=== PATIENT | female | born 1975 | race Caucasian/White ===

== ENCOUNTER 2017-06-28 06:01 | Day surgery (SDC) | payer BC ==
[2017-06-23 10:05] VITALS: BMI 59.7
[2017-06-28] MEDS ORDERED: LACTATED RINGERS 1,000 ML IV SCH (06:02)
[2017-06-28] MEDS ORDERED: SODIUM CHLORIDE 0.9% 1,000 ML IV SCH (06:02)
[2017-06-28] MEDS ORDERED: PROPOFOL 10 MG/ML 20 ML VIAL IV ONE (07:29)
[2017-06-28] MEDS ORDERED: ISOPROTERENOL 250 MCG/1.25 ML SYR IV ONE (07:29)
[2017-06-28] MEDS ORDERED: fentaNYL (PF) 50 MCG/ML 2 ML AMP ONE (07:29)
[2017-06-28] MEDS ORDERED: PHENYLEPHRINE-0.9% NACL SYG 1 MG/10 ML SYRINGE ONE (07:29)
[2017-06-28] MEDS ORDERED: SUCCINYLCHOLINE CHLORIDE VIAL 200 MG/10 ML VIAL IV ONE (07:29)
[2017-06-28] MEDS ORDERED: MIDAZOLAM 2 MG/2 ML VIAL ONE (07:29)
[2017-06-28] MEDS ORDERED: IV FLUID CONTINUATION 600 ML IV ONE ×2 (07:48)
[2017-06-28] MEDS ORDERED: LIDOCAINE 2% INJ 20 MG/ML SQ ONE (08:31)
[2017-06-28] MEDS ORDERED: HEPARIN SODIUM (1,000 UNIT/ML) 1,000 UNIT in SODIUM CHLORIDE 0.9% 1,000 ML IRRIGATION ONE (09:16)
[2017-06-28] MEDS ORDERED: ACETAMINOPHEN TAB 325 MG TAB PO PRN (10:21)
[2017-06-28] MEDS ORDERED: ACETAMINOPHEN IV (For NPO) 1,000 MG in EMPTY BAG 1 BAG IVPB ONE (10:21)
[2017-06-28] MEDS ORDERED: HYDROcodone/APAP 5-325MG 1 EACH TAB PO PRN (10:21)
[2017-06-28] MEDS ORDERED: ACETAMINOPHEN IV (For NPO) 1,000 MG/100 ML VIAL IVPB ONE (11:30)
[2017-06-28] MEDS ORDERED: LACTATED RINGERS 1,000 ML IV ONE (11:55)
--- NOTE | 2017-06-28 12:01 | CE ---
CARDIAC ELECTROPHYSIOLOGY REPORT Naomie Cabrales is a 42-year-old female patient of Dr. Huang and Dr. Helen Gomez who now follows with me. She has a history of paroxysmal atrial fibrillation with RVR. She has also had a history of atrial flutter. These episodes have been quite long and symptomatic and she was brought in for an EP study and radiofrequency ablation for atrial flutter. Sotalol was stopped several days prior to the procedure. Procedure was performed under general anesthesia. The right and left groin were prepped and draped as per protocol. sheaths were placed in the right and left femoral veins. Via these diagnostic catheters were placed in the heart (high right atrial catheter, His bundle catheter, RV catheter and coronary sinus catheter). Sinus cycle length was 818 milliseconds, NH interval 176 milliseconds, QRS 86 milliseconds, QT 388 milliseconds. AH interval was 69 milliseconds. HV interval 48 milliseconds. Sinus node recovery times at 600, 500 and 400 milliseconds at 1231, 1263 and 1233 milliseconds respectively. Corresponding corrected sinus node recovery times within normal limits. AV node Wenckebach block 320 milliseconds from the coronary sinus. VA Wenckebach block 300 milliseconds. Atrial extra stimulation was performed. Atrial ERP 600/220 milliseconds. Wide open Isuprel, AV node Wenckebach block improved to 220 milliseconds. Right bundle branch block aberrancy was noted. Slow pathway was noted at a pacing cycle length of 310 milliseconds. No AV carolina re-entry was induced. Atrial ERP 500/10 milliseconds. There was a drop in blood pressure with Isuprel and with rapid atrial pacing. Intracardiac echocardiography was performed. A 3D mapping of the right atrial isthmus was performed. This was a short thick isthmus with mid isthmus pouch. Branch of the coronary artery was beneath the atrial tissue close to the tricuspid annulus and this area was avoided. RF ablation was performed for the tricuspid annulus to the eustachian ridge. A complete anatomic line of block was made avoiding the area of the coronary artery. A complete anatomic line was made. The pouch was ablated carefully. Eustachian ridge was ablated with reversed loop technique. No anatomic gaps were left. Isthmus conduction time was greater than 174 milliseconds in either direction. The differential pacing bidirectional block was confirmed. The line was mapped postablation and split potentials were noted with spit of about 120 milliseconds across the line. Then on Isuprel rapid burst stimulation was performed. No atrial fibrillation was induced. No SVT was induced. The patient was then extubated at the end of the procedure. All catheters removed. FemoStop was used. RESULT: Diagnostic EP study revealing 1. Normal sinus node function, normal AV node function. 2. Evidence of dual AV carolina physiology. 3. Normal baseline measurements. 4. Successful mapping and ablation for atrial flutter. This was a short thick isthmus pouch bidirectional block obtained with differential pacing. 5. Intracardiac echocardiography did not reveal any pericardial effusion. It did not reveal any wall motion abnormality. Left ventricular ejection fraction about 50% low limits of normal. PLAN: Stop sotalol, start metoprolol succinate 50 mg p.o. daily. Continue spironolactone and losartan and anticoagulation. MMODL / IJN: [id number] /
--- NOTE | 2017-06-28 12:07 | LTR ---
June 28, 2017 Re: Naomie Keron Dear Dr. Huang: I had the pleasure of seeing Naomie Cabrales in electrophysiology followup. Naomie underwent diagnostic EP study and successful ablation for atrial flutter. Left ventricular ejection fraction is at the lower limits of normal about 505. I had stopped sotalol and started her on Toprol-XL 50 mg p.o. daily. She will continue apixaban for now and will also continue losartan and spironolactone. In the future, she has episodes of atrial fibrillation then I would proceed with an atrial fibrillation ablation. On Isuprel during tachycardia, her blood pressure dropped to 80 mmHg, which explains why her episodes of atrial fibrillation with RVR and atrial flutter with RVR are so symptomatic. Thank you for entrusting me in the care of patient. Warm regards. Sincerely, MD CANDELARIA Marie / BASIL: [id number] /
[2017-06-28] MEDS: METOPROLOL SUCCINATE (ER) 50 MG TAB.ER.24H PO SCH (16:23)
[2017-06-28] MEDS: APIXABAN 5 MG TAB PO SCH (20:18)
[2017-06-29 07:47] VITALS: BP 140/76; PULSE 80; RESP 18; TEMP 98
--- NOTE | 2017-06-29 08:11 | P.DS ---
Providers Attending physician: Jose David Godoy Primary care physician: Stated None Hospital Course: Patient underwent a diagnostic EP study and successful ablation for atrial flutter with confirmed bidirectional block with differential pacing. Sotalol was discontinued. Metoprolol succinate was begun 50 mrem. Once daily. ELIQUIS , spironolactone and losartan were continued. Intracardiac echocardiography revealed the left ventricular ejection fraction of about 50% , no pericardial effusion no wall motion abnormalities. No intracardiac mass or thrombus Patient is doing well. She has been ambulating up in the hallways. No chest discomfort no dizziness lightheadedness. Groins are sore but there is no hematoma. On examination she is afebrile 98F blood pressure 140/76 mmHg pulse rate in the 80s pulse ox 96%. Heart sounds S1 and S2 are normal no murmurs or gallop sounds are clear no rhonchi no crackles extremities warm no edema Impression History of dilated cardio myopathy Hypertension Paroxysmal atrial fibrillation with RVR Paroxysmal atrial flutter, symptomatic Morbid obesity Past history of smoking Plan Stop sotalol completely and start metoprolol succinate watch for episodes of atrial fibrillation, weight loss him a low, heart rate tired, sleep apnea assessment Continue anticoagulation Follow-up with Dr. Storey in about 2 weeks Patient Condition at Discharge: Stable Plan - Discharge Summary New Discharge Prescriptions: New RX: Metoprolol Succinate [Toprol XL] 50 mg PO DAILY #90 tab.er.24h Discontinued Sotalol [Betapace] 80 mg PO BID No Action Spironolactone [Aldactone] 25 mg PO DAILY Losartan Potassium [Cozaar] 25 mg PO DAILY Multivitamins, Thera [Multivitamin (formulary)] 1 tab PO DAILY Magnesium Gluconate [Magonate] 500 mg PO DAILY RX: Garlic 1 each PO DAILY Apixaban [Eliquis] 5 mg PO BID Discharge Medication List Losartan Potassium [Cozaar] 25 mg PO DAILY 06/23/17 [History] Magnesium Gluconate [Magonate] 500 mg PO DAILY 06/23/17 [History] Multivitamins, Thera [Multivitamin (formulary)] 1 tab PO DAILY 06/23/17 [History ] RX: Garlic 1 each PO DAILY 06/23/17 [History] Spironolactone [Aldactone] 25 mg PO DAILY 06/23/17 [History] Apixaban [Eliquis] 5 mg PO BID 06/28/17 [History] RX: Metoprolol Succinate [Toprol XL] 50 mg PO DAILY #90 tab.er.24h 06/28/17 [Rx] Activity/Diet/Wound Care/Special Instructions: Post EP study - Ablation instructions 1. Keep access sites dry for 2 days. 2. No heavy lifting or straining for 2 days. 3. Avoid bending the hips repeatedly for 2 days. 4. You may go up and down stairs slowly Call if the following is noted 1. Bleeding, increasing swelling or pain at the access sites. 2. Increasing chest discomfort, especially upon taking a deep breath. 3. Increasing shortness of breath, at rest or with exertion. 4. Undue cough / phlegm 5. Difficulty or pain while swallowing. 6. Pain or change in color in the extremities. 7. Fever, chills, rigors. 8. Increasing headache or neurologic symptoms. 9. Dizziness, fainting, palpitations Discontinued medication Sotalol New medication Metoprolol succinate 50 mg by mouth daily Continue anticoagulation, continue spironolactone and losartan
[2017-06-29] MEDS: METOPROLOL SUCCINATE (ER) 50 MG TAB.ER.24H PO SCH (08:27)
[2017-06-29] MEDS: APIXABAN 5 MG TAB PO SCH (08:28)
[2017-06-29] MEDS ORDERED: SPIRONOLACTONE 25 MG TAB PO SCH (09:00)
[2017-06-29] MEDS ORDERED: MAGNESIUM OXIDE 400 MG TAB PO SCH (09:00)
[2017-06-29] MEDS ORDERED: LOSARTAN 25 MG TAB PO SCH (09:00)
== END 2017-06-29 11:13 | disposition home or self-care (01) ==
LOC: CATHEP 06:01 → 3OBS 10:06 → CATHEP 06-29 11:13
PROVIDERS: ATTEND Internal Medicine Clinical Cardiac Electrophysiology
DX: I48.0 Paroxysmal atrial fibrillation (principal); I48.92 Unspecified atrial flutter; I45.10 Unspecified right bundle-branch block; I44.1 Atrioventricular block, second degree; I42.8 Other cardiomyopathies; I10 Essential (primary) hypertension; Z87.891 Personal history of nicotine dependence; E66.01 Morbid (severe) obesity due to excess calories; Z68.43 Body mass index [BMI] 50.0-59.9, adult; Z82.49 Family history of ischemic heart disease and other diseases of the circulatory system; Z79.82 Long term (current) use of aspirin; Z79.899 Other long term (current) drug therapy; Z79.02 Long term (current) use of antithrombotics/antiplatelets
CPT/HCPCS: 93623; 93662; 93613; 93653; 81025; C1894; C1769 ×2; C1893; C1730 ×3; C1759; C1732; J2001; J2250; J0330; J3010; J1644; J0131; J2370; J2704

== ENCOUNTER → 2017-10-20 | Outpatient (CLI) | payer BC ==
--- NOTE | 2017-10-20 17:38 | PN ---
PROGRESS NOTE DATE OF SERVICE: 10/20/2017 42-year-old lady has been followed in Sleep Center for treatment of severe obstructive sleep apnea-hypopnea syndrome. Recently patient had polysomnogram and CPAP titration and I discussed results of sleep studies with her in details. Severe sleep apnea was corrected during titration. Subsequently she received her CPAP equipment, started to use it and today she came for followup visit with her equipment. The patient was able to use her equipment without significant problems related to mask fitting, pressure, or humidification. She feels better during the day, not so sleepy as before. [place] Sleepiness Scale today is 5. I checked her CPAP unit. Usage is 100% of the time with the average usage 7.7 hours. Leak is 2 L/minute only, which is absolutely perfect. Apnea-hypopnea index for the last month 3.34. The last night only 0.9. MEDICATIONS: Metoprolol, losartan, spironolactone, Eliquis. PHYSICAL EXAM: GENERAL Patient in no distress. VITAL SIGNS BP 129/67, HR 76, RR 16, weight 317.6, temperature 98.2, O2 saturation room air 98%. HEENT PERRLA, EOMI, evaluation of oropharynx showed low position of soft palate. NECK Supple, no JVD. Thyroid is not palpable. LUNGS Clear to percussion and to auscultation. Good air exchange. No wheezing or rhonchi. HEART S1, S2 regular. No murmurs, gallops, or rubs. ABDOMEN Obese. Soft and nontender. Bowel sounds are present. No organomegaly appreciated. EXTREMITIES 1+ ankle edema. PILLOWCASE MAKER Awake, alert, and oriented X3. Cranial nerves 2 to 7 intact. There is no fasciculation or atrophy. noted. No focal deficits observed. IMPRESSION: 1. Extremely severe obstructive sleep apnea-hypopnea syndrome apnea-hypopnea index 97.9 with oxygen desaturation to 74% on control with CPAP at 10 cm of water. Patient demonstrated 100% compliance with treatment benefitting from treatment. 2. Obesity. 3. Diabetes mellitus. 4. History of atrial fibrillation, status post cardiac ablation procedure. At the present time it seems that she is in sinus rhythm. 5. Hypertension. 6. Status post tubal ligation. PLAN: 1. Continue treatment with CPAP every night. 2. Losing weight. 3. Sleep hygiene with regular time in bed for at least 8 hours. 4. No driving if feeling sleepiness. Thank you very much for allowing me to participate in management of your patient. Sincerely, Anton Meade MD, PhD, FAASM Diplomat of [employer] Rn Or Lpn of [facility] [place] MMODL / NASIMAN: [id number] /
== END | disposition home or self-care (01) ==
LOC: SLEEP 16:08
PROVIDERS: ATTEND Internal Medicine
DX: G47.33 Obstructive sleep apnea (adult) (pediatric) (principal); E66.9 Obesity, unspecified; I48.91 Unspecified atrial fibrillation; E11.9 Type 2 diabetes mellitus without complications; I10 Essential (primary) hypertension; Z79.01 Long term (current) use of anticoagulants; Z79.899 Other long term (current) drug therapy; Z99.89 Dependence on other enabling machines and devices; Z98.51 Tubal ligation status; Z98.890 Other specified postprocedural states

== ENCOUNTER → 2018-10-19 | Outpatient (CLI) | payer BC ==
--- NOTE | 2018-10-19 16:08 | PN ---
PROGRESS NOTE DATE OF SERVICE: 10/19/2018 This patient is a 43-year-old lady who has been followed in Sleep Center for treatment of obstructive sleep apnea-hypopnea syndrome. The patient continues to use her equipment every night for the whole night. Recently she again developed snoring and started to feel a little bit more tired during the day. [place] Sleepiness Scale is 5. I checked the patient's CPAP unit. Usage is 100% of nights for more than 4 hours. Average usage is 6.5 hours per night. Leak is only 2 L/minute. Apnea-hypopnea index is 3.6, which is acceptable. For the last night, apnea-hypopnea index was 2.2. CPAP pressure is 10 cm of water. MEDICATIONS: 1. Citalopram. 2. Metoprolol. 3. Spironolactone. 4. Flecainide. PHYSICAL EXAMINATION: GENERAL: A pleasant patient in no distress. VITAL SIGNS: BP 140/56, HR 76, RR 16, height 5 feet 6 inches, weight 399 pounds. Patient's weight increased significantly since her previous visit, when her weight was 317 pounds; this is around 82 pounds more. Body mass index 64. Temperature 98.0. Saturation at room air 98%. HEENT: PERRLA, EOMI. Evaluation of oropharynx showed tongue protrudes midline. Extremely low position of soft palate. NECK: Supple. No JVD. Thyroid is not palpable. LUNGS: Clear to percussion and to auscultation. Good air exchange. No wheezing or rhonchi. HEART: S1, S2 regular. No murmurs, gallops or rubs. ABDOMEN: Obese. EXTREMITIES: One plus bilateral ankle edema. SPINDLE SETTER: Awake, alert, and oriented X3. Cranial nerves 2 to 7 intact. There is no fasciculation or atrophy. noted. No focal deficits observed. IMPRESSION: 1. Extremely severe obstructive sleep apnea-hypopnea syndrome; apnea-hypopnea index 97.9 with oxygen desaturation to 74%. Patient demonstrated 100% compliance with treatment, benefitting with treatment. After her weight increased, she developed snoring and sometimes tiredness and sleepiness during the day. 2. Obesity. Patient's weight has increased by 82 pounds. 3. Diabetes mellitus. 4. History of atrial fibrillation, status post cardiac ablation. No recent episodes of cardiac arrhythmia. 5. Hypertension. 6. Status post tubal ligation. PLAN: 1. I will change the regimen of the machine to automatic with a maximum pressure of 14. 2. Patient will continue to use equipment every night for the whole night. 3. Aggressive losing weight program. 4. No driving if feeling any sleepiness. 5. We will maintain all necessary prescription for CPAP supplies, including mask, tube, filters. Thank you very much for allowing me to participate in the management of your patient. Sincerely, Anton Meade MD, PhD, FAASM Diplomat of [place] [employer] Blankmaker [facility] [place] MMODL / IJN: [id number] /
== END ==
LOC: SLEEP 14:20
PROVIDERS: ATTEND Internal Medicine
DX: Z53.9 Procedure and treatment not carried out, unspecified reason (principal)

== ENCOUNTER → 2019-04-19 | Outpatient (CLI) | payer BC ==
--- NOTE | 2019-04-19 16:45 | PN ---
PROGRESS NOTE DATE OF SERVICE: 04/19/2019 This patient is a 44-year-old lady who has been followed in Sleep Center for treatment of obstructive sleep apnea-hypopnea syndrome. The patient continues to use CPAP equipment every night for the whole night. About 6 months ago, because patient's weight significantly increased by about 70 pounds, I increased pressure in her machine up to 12. After increasing the pressure, the patient stopped getting headaches and migraines. She feels well, sleeps well with the machine. No significant excessive daytime sleepiness. [place] Sleepiness Scale today is 3, which is absolutely normal. I checked the patient's CPAP unit. CPAP pressure is 12 cm of water. Usage is 29/30 nights for more than 4 hours with average usage 6.5 hours per night. Leak is 40 L/minute, which is acceptable. Apnea-hypopnea index is only 1.3, which is absolutely perfect. MEDICATIONS: 1. Citalopram. 2. Metoprolol. 3. Spironolactone. 4. Flecainide. PHYSICAL EXAMINATION: GENERAL: A pleasant patient in no distress. VITAL SIGNS: BP 119/62, HR 76, RR 16, height 5 feet 6 inches, weight 404, body mass index 65.2, temperature 98.5, oxygen saturation at room air 98%. HEENT: PERRLA, EOMI. Evaluation of oropharynx showed tongue protrudes midline. Extremely low position of soft palate. Mallampati IV. NECK: Supple. No JVD. Thyroid is not palpable. LUNGS: Clear to percussion and to auscultation. Good air exchange. No wheezing or rhonchi. HEART: S1, S2 regular. No murmurs, gallops or rubs. ABDOMEN: Obese. EXTREMITIES: No clubbing or cyanosis. PLASTIC DIE MAKER APPRENTICE: Awake, alert, and oriented X3. Cranial nerves 2 to 7 intact. There is no fasciculation or atrophy. noted. No focal deficits observed. IMPRESSION: 1. Extremely severe obstructive sleep apnea-hypopnea syndrome with apnea-hypopnea index 97.9, under full control with CPAP at the pressure of 12 cm of water. Patient has demonstrated 100% compliance with treatment, benefitting from treatment. 2. Obesity. 3. Diabetes mellitus. 4. History of atrial fibrillation, status post cardiac ablation. No recent episodes of cardiac arrhythmia. 5. Hypertension. 6. Status post tubal ligation. PLAN: 1. Patient will continue to use CPAP equipment every night for the whole night. 2. Losing weight. 3. Sleep hygiene with regular time in bed for at least 8 hours. 4. Prescription for all necessary CPAP supplies, including mask, tube, filters. 5. No driving if feeling any sleepiness. 6. Follow-up visit in one year, or earlier if patient has any problems. Thank you very much for allowing me to participate in the management of your patient. Sincerely, Anton Meade MD, PhD, FAASM Diplomat of [employer] Manager Organizational of [facility] [place] MMODL / IJN: [id number] /

== ENCOUNTER → 2020-07-24 | Outpatient (CLI) | payer OTHER ==
--- NOTE | 2020-07-24 23:17 | SFUN ---
SLEEP CENTER FOLLOW UP NOTE DATE OF SERVICE: 07/24/2020 This 45-year-old lady has been followed in Sleep Center for treatment of extremely severe obstructive sleep apnea-hypopnea syndrome. The patient successfully continues to use her CPAP equipment every night for the whole night. She is satisfied with her mask and pressure in the machine. She does not snore, sleeps well. [place] Sleepiness Scale today is 4, which is normal. I checked CPAP unit. CPAP pressure is 12 cm of water, usage 29/30 nights more than 4 hours. Average usage is 7.6 hours per night. Leak is quite high 41 L/minute, but at the same time, apnea-hypopnea index only 0.9, which is perfect. MEDICATIONS: Citalopram 20 mg once a day, spironolactone 25 mg twice a day, flecainide 50 mg twice a day, metoprolol 100 mg once a day, 10 mg once a day. PHYSICAL EXAMINATION: GENERAL: Patient in no distress. VITAL SIGNS: BP 126/75, HR 77, RR 16, height 5 feet 6 inches, weight 435 pounds, body mass index 70.2, oxygen saturation at room air at 96%. HEENT: PERRLA, EOMI. Oropharynx extremely low position of soft palate. Mallampati 4. NECK: Supple, no JVD. Thyroid is not palpable. LUNGS: Clear to percussion and to auscultation. Good air exchange. No wheezing or rhonchi. HEART: S1, S2 regular. No murmurs, gallops, or rubs. ABDOMEN: Obese. EXTREMITIES: No clubbing or cyanosis. NURSE EMERGENCY: Awake, alert, and oriented X3. Cranial nerves 2 to 7 intact. There is no fasciculation or atrophy. noted. No focal deficits observed. IMPRESSION: 1. Extremely severe obstructive sleep apnea-hypopnea syndrome apnea-hypopnea index 97.9 during diagnostic polysomnogram on full control with CPAP at a pressure of 12 cm of water. Patient demonstrated great compliance with treatment benefitting from treatment. 2. Obesity. 3. Diabetes mellitus. 4. History of atrial fibrillation, status post cardiac ablation. No recent episodes of cardiac arrhythmia. 5. Hypertension. 6. Status post tubal ligation. PLAN: 1. Patient will continue to use PAP equipment every night for the whole night. 2. Sleep hygiene with regular time in bed for at least 7-1/2 to 8 hours. 3. Precautions related to driving. No driving if feeling sleepiness. 4. I will maintain all necessary prescription for PAP supplies including mask, tube, filters. 5. Watching weight. 6. No driving if feeling sleepiness. 7. Follow-up visit in 6 months or earlier if patient has any problems. Thank you very much for allowing me to participate in management of your patient. Sincerely, Anton Meade MD, PhD, FAASM Diplomat of [employer] Prepress Supervisor of [facility] [place] MMODL / IJN: [id number] /
== END | disposition home or self-care (01) ==
LOC: SLEEP 15:10
PROVIDERS: ATTEND Internal Medicine
DX: G47.33 Obstructive sleep apnea (adult) (pediatric) (principal); E11.9 Type 2 diabetes mellitus without complications; I10 Essential (primary) hypertension; Z98.51 Tubal ligation status; Z86.79 Personal history of other diseases of the circulatory system; Z79.899 Other long term (current) drug therapy

== ENCOUNTER → 2021-01-29 | Outpatient (CLI) | payer OTHER ==
--- NOTE | 2021-01-29 19:31 | SFUN ---
SLEEP CENTER FOLLOW UP NOTE DATE OF SERVICE: 01/29/2021 This 46-year-old lady has been followed up in Sleep Center for treatment of obstructive sleep apnea-hypopnea syndrome. Patient continues to use her CPAP equipment every night for the whole night. According to her, she could not sleep now without CPAP. She likes her mask. She is getting her supplies on time. [place] Sleepiness Scale today is only 2, which is totally normal. I checked her CPAP unit. CPAP pressure is 12 cm of water. Usage is 30/30 nights for more than 4 hours with average usage is 6 hours per night. Leak is 29 L/minute. Apnea- hypopnea index is 1.1. MEDICATIONS: 1. Citalopram 20 mg once a day. 2. Losartan 25 mg once a day. 3. Flecainide 50 mg twice a day. 4. Rosuvastatin 10 mg once a day. 5. Metoprolol 100 mg once a day. PHYSICAL EXAMINATION: GENERAL: A pleasant lady without distress. VITAL SIGNS: BP 128/60 HR 70, RR 15, height 5 feet 6 inches, weight 441.2, body mass index 71.1. The patient's weight increased by 6 pounds since her previous visit. Temperature 96.8, oxygen saturation at room air 97%. HEENT: PERRLA, EOMI. Evaluation of oropharynx showed tongue protrudes midline. Extremely low position of soft palate. Mallampati IV. NECK: Supple. No JVD. Thyroid is not palpable. LUNGS: Clear to percussion and to auscultation. Good air exchange. No wheezing or rhonchi. HEART: S1, S2 regular. No murmurs, gallops or rubs. ABDOMEN: Significantly obese. EXTREMITIES: No clubbing or cyanosis. GEAR LAPPER: Awake, alert, and oriented X3. Cranial nerves 2 to 7 intact. There is no fasciculation or atrophy. noted. No focal deficits observed. IMPRESSION: 1. Extremely severe obstructive sleep apnea-hypopnea syndrome; AHI 97.9. The patient demonstrated 100% compliance with treatment. Respiration is normal on treatment with CPAP. 2. Obesity, morbid range. 3. Diabetes mellitus. 4. History of atrial fibrillation, status post cardiac ablation. No recent episodes of cardiac arrhythmia. 5. Hypertension. 6. Status post tubal ligation. PLAN: 1. Patient will continue to use PAP equipment every night for the whole night. 2. Sleep hygiene with regular time in bed for at least 7-1/2 to 8 hours. 3. Precautions related to driving. No driving if feeling sleepiness. 4. I will maintain all necessary prescription for PAP supplies including mask, tube, filters. 5. Watching weight. 6. Follow-up visit in 6 months or earlier if patient has any problems. Thank you very much for allowing me to participate in the management of your patient. Sincerely, Anton Meade MD, PhD, FAASM Diplomat of [place] [employer] [employer] Natural Resources Engineer of [facility] [place] MMODL / NASIMAN: [id number] /
== END ==
LOC: SLEEP 13:23
PROVIDERS: ATTEND Internal Medicine
DX: G47.33 Obstructive sleep apnea (adult) (pediatric) (principal); E66.01 Morbid (severe) obesity due to excess calories; E11.9 Type 2 diabetes mellitus without complications; I48.91 Unspecified atrial fibrillation; I10 Essential (primary) hypertension; Z98.51 Tubal ligation status; Z98.890 Other specified postprocedural states; Z68.45 Body mass index [BMI] 70 or greater, adult

== ENCOUNTER → 2023-11-23 | Outpatient (CLI) | payer BC ==
--- NOTE | 2023-11-23 16:32 | P.PN ---
Subjective DATE: 11/23/2023 FOLLOW UP VISIT. Patient with obstructive sleep apnea hypopnea syndrome return to sleep center for follow-up visit. Information from previous visit have been reviewed. Patient is using PAP equipment every night for the whole night, getting PAP supplies in time. The patient does not have significant problems with the mask, PAP unit and humidification. [place] sleepiness scale is 4, which is normal. I checked information from PAP unit. PAP unit pressure 12 cm H2O. Usage is 100% for more then 4 hours, average 7.2 hours per night. Leak is 25 l/m, which is in acceptable range. Apnea Hypopnea Index is 0.9, which is normal. MEDICATIONS:1. Metoprolol 50 mg once a day 2. Flecainide 100 mg twice a day 3. Duloxetine 30 mg once a day 4. Furosemide 20 mg once a day 5. Spironolactone 25 mg once a day 6. Rosuvastatin 10 mg once a day 7. Losartan 25 mg once a day 8. Allopurinol 300 mg every second day During physical exam: GENERAL: A pleasant patient without any distress. VITAL SIGNS: BP 124/73, HR 85, RR 18, weight 438.8, temperature 98.0, oxygen saturation at room air 95% . HEENT: PERRLA, EOMI.low position of soft palate, Mallapati 4 . NECK: Supple. No JVD. LUNGS: Clear to percussion and to auscultation. Good air exchange. No wheezing or rhonchi. HEART: S1, S2 regular. ABDOMEN: Soft and nontender. Obese EXTREMITIES: No clubbing or cyanosis. GUIDE CRUISE: Awake, alert, and oriented x3. No focal deficit. Impressions: 1. Obstructive sleep apnea-hypopnea syndrome in extremely severe range, original apnea-hypopnea index was 97.9. Patient demonstrated great compliance with treatment, benefiting from treatment, normal respiration on CPAP. 2. Obesity, BMI 70.6. 3. Diabetes mellitus. 4. Hypertension. 5. History of atrial fibrillation, s/p cardiac ablation. No recent episodes. 6. Status post tubal ligation. Plan: 1. Continue using PAP equipment every night for the whole night. 2. To change air filter at least 1-2 times per month. 3. PAP unit should stay lower then position of the head. 4. Advised patient to remove all remaining water from humidifier canister daily and make it dry after each usage. Refill canister with fresh distilled water before each usage. 5. Sleep hygiene with regular time in bed for at least 8 hours. 6. Precautions related to driving. No driving if feel any sleepiness. 7. I will maintain prescription for PAP supplies including mask, tube, filters. 8. Follow up visit in 6 months or earlier if patient has any problems. 9. Watching and losing weight. Thank you very much for allowing me to participate in the management of your patient. Anton Meade MD, PhD, FAASM. Diplomat of [employer], Sleep Medicine Board by [employer] Gum Dipper of [facility] [place]
== END ==
LOC: 3 N SLEEP 15:03
PROVIDERS: ATTEND Internal Medicine
DX: G47.33 Obstructive sleep apnea (adult) (pediatric) (principal); E66.9 Obesity, unspecified; E11.9 Type 2 diabetes mellitus without complications; I10 Essential (primary) hypertension; I48.91 Unspecified atrial fibrillation; Z98.51 Tubal ligation status; Z68.45 Body mass index [BMI] 70 or greater, adult; Z99.89 Dependence on other enabling machines and devices; Z79.899 Other long term (current) drug therapy; Z98.890 Other specified postprocedural states; Z79.01 Long term (current) use of anticoagulants
CPT/HCPCS: 99212

== ENCOUNTER → 2024-06-20 | Outpatient (CLI) | payer BC ==
[2024-06-20 16:01] VITALS: BP 114/70; PULSE 69; RESP 20; TEMP 97.9
--- NOTE | 2024-06-20 18:16 | P.PROGSL ---
Subjective DATE: 06/20/2024 FOLLOW UP VISIT. Patient with obstructive sleep apnea hypopnea syndrome return to sleep center for follow-up visit. Information from previous visit have been reviewed. Patient is using PAP equipment every night for the whole night, getting PAP supplies in time. The patient does not have significant problems with the mask, PAP unit and humidification. [place] sleepiness scale is 1, which is normal. I checked information from PAP unit. PAP unit pressure 12 cm H2O. Usage is 100% for more then 4 hours, average 7.2 hours per night. Leak is 20 l/m, which is in acceptable range. Apnea Hypopnea Index is 1.8, which is normal. MEDICATIONS have been reviewed, please see below. During physical exam: GENERAL: A pleasant patient without any distress. VITAL SIGNS: Please see below, weight is 404.0 lbs. HEENT: PERRLA, EOMI.low position of soft palate, Mallapati 4 . NECK: Supple. No JVD. LUNGS: Clear to percussion and to auscultation. Good air exchange. No wheezing or rhonchi. HEART: S1, S2 regular. ABDOMEN: Soft and nontender. Obese EXTREMITIES: No clubbing or cyanosis. PARENT TRAINER: Awake, alert, and oriented x3. No focal deficit. Impressions: 1. Obstructive sleep apnea-hypopnea syndrome. Patient demonstrated great compliance with treatment, benefiting from treatment. 2. Obesity, BMI 65.8, patient lost 34 pounds comparing with previous visit. 3. Hypertension. 4. Diabetes mellitus. 5. History of atrial fibrillation, status post cardiac ablation. No episodes of atrial fibrillation recently. 6. Status post tubal ligation. Plan: 1. Continue using PAP equipment every night for the whole night. 2. Sleep hygiene with regular time in bed for at least 7.5-8 hours 3. PAP unit should stay lower then position of the head. 4. Advised patient to remove all remaining water from humidifier canister daily and make it dry after each usage. Refill canister with fresh distilled water before each usage. 5. Watching and continue losing weight. 6. Precautions related to driving. No driving if feel any sleepiness. 7. I will maintain prescription for PAP supplies including mask, tube, filters. 8. Follow up visit in 8 months or earlier if patient has any problems. Thank you very much for allowing me to participate in the management of your patient. Anton Meade MD, PhD, FAASM. Diplomat of [employer], Sleep Medicine Board by [employer] Lap Maker of [facility] [place] Objective - Vital Signs Vital Signs: Vital Signs Temp 97.9 F 06/20/24 15:59 Pulse 69 06/20/24 15:59 Resp 20 06/20/24 15:59 BP 114/70 06/20/24 15:59 Pulse Ox 97 06/20/24 15:59 FiO2 Intake & Output 06/19/24 06/20/24 06/20/24 18:59 06:59 18:59 Weight 183.251 kg Home Medications: Home Medications Medication Instructions Recorded Confirmed Type Garlic 1 each PO DAILY 06/23/17 06/23/17 History Losartan Potassium [Cozaar] 25 mg PO DAILY 06/23/17 06/20/24 History Magnesium Gluconate [Magonate] 500 mg PO DAILY 06/23/17 06/23/17 History Multivitamins, Thera [Multivitamin 1 tab PO DAILY 06/23/17 06/23/17 History (formulary)] Spironolactone [Aldactone] 25 mg PO DAILY 06/23/17 06/20/24 History Apixaban [Eliquis] 5 mg PO BID 06/28/17 06/28/17 History Metoprolol Succinate [Toprol XL] 50 mg PO DAILY #90 tab.er.24h 06/28/17 06/20/24 Rx DULoxetine HCL [Cymbalta] 60 mg PO DAILY 06/20/24 06/20/24 History Flecainide [Tambocor] 100 mg PO DAILY 06/20/24 06/20/24 History Furosemide [Lasix] 20 mg PO DAILY 06/20/24 06/20/24 History Rosuvastatin [Crestor] 10 mg PO DAILY 06/20/24 06/20/24 History Semaglutide [Ozempic] 1 mg SQ WEEKLY 06/20/24 06/20/24 History allopurinoL [Allopurinol] 300 mg PO DIRECTED 06/20/24 06/20/24 History
== END ==
LOC: 3 N SLEEP 15:15
PROVIDERS: ATTEND Internal Medicine
CPT/HCPCS: 99212

== ENCOUNTER → 2025-03-06 | Outpatient (CLI) | payer BC ==
[2025-03-06 16:52] VITALS: BP 123/75; PULSE 71; RESP 16; TEMP 98.2
--- NOTE | 2025-03-06 17:10 | P.PROGSL ---
Subjective DATE: 03/06/2025 FOLLOW UP VISIT. Patient with obstructive sleep apnea hypopnea syndrome return to sleep center for follow-up visit. Information from previous visit have been reviewed. Patient is using PAP equipment every night for the whole night, getting PAP supplies in time. The patient does not have significant problems with the mask, PAP unit and humidification. [place] sleepiness scale is 4, which is normal. I checked information from PAP unit. PAP unit pressure 12 cm H2O. Usage is 100% for more then 4 hours, average 7.4 hours per night. Leak is 23 l/m, which is in acceptable range. Apnea Hypopnea Index is 2.7, which is normal. MEDICATIONS: Metoprolol 50 mg once a day, flecainide 100 mg twice a day, citalopram 20 mg once a day, furosemide 20 mg once a day, spironolactone 25 mg once a day, rosuvastatin 10 mg once a day, losartan 25 mg once a day, Ozempic 1 mg once a week, allopurinol 300 mg once a day. During physical exam: GENERAL: A pleasant patient without any distress. VITAL SIGNS: Please see below, weight is 377.0 lbs. HEENT: PERRLA, EOMI.low position of soft palate, Mallapati 4 . NECK: Supple. No JVD. LUNGS: Clear to percussion and to auscultation. Good air exchange. No wheezing or rhonchi. HEART: S1, S2 regular. ABDOMEN: Soft and nontender. Obese EXTREMITIES: No clubbing or cyanosis. MANAGER LANDSCAPE: Awake, alert, and oriented x3. No focal deficit. Impressions: 1. Obstructive sleep apnea-hypopnea syndrome. Patient demonstrated great compliance with treatment, benefiting from treatment. 2. Obesity, patient lost 27 pounds comparing with previous visit. 3. Hypertension. 4. Diabetes mellitus. 5. History of atrial fibrillation, no recent episodes of cardiac arrhythmia. Status post cardiac ablation. 6. Status post tubal ligation. Plan: 1. Continue using PAP equipment every night for the whole night. 2. Sleep hygiene with regular time in bed for at least 7.5-8 hours 3. PAP unit should stay lower then position of the head. 4. Advised patient to remove all remaining water from humidifier canister daily and make it dry after each usage. Refill canister with fresh distilled water before each usage. 5. Watching weight. 6. Precautions related to driving. No driving if feel any sleepiness. 7. I will maintain prescription for PAP supplies including mask, tube, filters. 8. Follow up visit in 8 months or earlier if patient has any problems. Thank you very much for allowing me to participate in the management of your patient. Anton Meade MD, PhD, FAASM. Diplomat of [employer], Sleep Medicine Board by [employer] Content Producer of [facility] [place] Objective - Vital Signs Vital Signs: Vital Signs Temp 98.2 F 03/06/25 16:51 Pulse 71 03/06/25 16:51 Resp 16 03/06/25 16:51 BP 123/75 03/06/25 16:51 Pulse Ox 96 03/06/25 16:51 FiO2 Intake & Output 03/05/25 03/06/25 03/06/25 18:59 06:59 18:59 Weight 171.004 kg Home Medications: Home Medications Medication Instructions Recorded Confirmed Type Garlic 1 each PO DAILY 06/23/17 06/23/17 History Losartan Potassium [Cozaar] 25 mg PO DAILY 06/23/17 06/20/24 History Magnesium Gluconate [Magonate] 500 mg PO DAILY 06/23/17 06/23/17 History Multivitamins, Thera [Multivitamin 1 tab PO DAILY 06/23/17 06/23/17 History (formulary)] Spironolactone [Aldactone] 25 mg PO DAILY 06/23/17 06/20/24 History Apixaban [Eliquis] 5 mg PO BID 06/28/17 06/28/17 History Metoprolol Succinate [Toprol XL] 50 mg PO DAILY #90 tab.er.24h 06/28/17 06/20/24 Rx DULoxetine HCL [Cymbalta] 60 mg PO DAILY 06/20/24 06/20/24 History Flecainide [Tambocor] 100 mg PO DAILY 06/20/24 06/20/24 History Furosemide [Lasix] 20 mg PO DAILY 06/20/24 06/20/24 History Rosuvastatin [Crestor] 10 mg PO DAILY 06/20/24 06/20/24 History Semaglutide [Ozempic] 1 mg SQ WEEKLY 06/20/24 06/20/24 History allopurinoL [Allopurinol] 300 mg PO DIRECTED 06/20/24 06/20/24 History
== END ==
LOC: 3 N SLEEP 16:38
PROVIDERS: ATTEND Internal Medicine
DX: G47.33 Obstructive sleep apnea (adult) (pediatric) (principal); E66.9 Obesity, unspecified; E11.9 Type 2 diabetes mellitus without complications; I48.91 Unspecified atrial fibrillation; I49.9 Cardiac arrhythmia, unspecified; Z98.890 Other specified postprocedural states; Z99.89 Dependence on other enabling machines and devices
CPT/HCPCS: 99212